=== PATIENT | female | born 1990 | race Caucasian/White ===

== ENCOUNTER 2023-02-16 11:04 | Day surgery (SDC) | payer OTHER, SELFPAY ==
[2023-02-06 14:18] VITALS: BMI 22.8
--- NOTE | 2023-02-15 15:43 | WPDANESEPPF ---
Anes - Initial Pre Proc Eval Procedure: Operation Date: 02/16/23 14:00 Proposed Procedures p Bilateral Breast Augmentation Mammoplasty - Naresh Campuzano MD Date/Time: 02/15/23 15:43 Surgeon: Naresh Campuzano MD Pre Op Diagnosis: Micromastia Patient Data Age: 32 Gender: F Height: 1.73 m Weight: 68 kg Allergies Allergy/AdvReac Type Severity Reaction Status Date / Time No Known Allergies Allergy Verified 02/16/23 11:38 Home Medications Medication Instructions Recorded Confirmed Type lisdexamfetamine 40 mg capsule 40 mg PO DAILY 02/06/23 02/16/23 History (Vyvanse) semaglutide 2 mg/dose (8 mg/3 mL) 1 mg subcut DAILY 02/06/23 02/16/23 History subcutaneous pen injector (Ozempic) Patient hx anesthesia problems: none Family hx anesthesia problems: none Results Review: All pre-operative results and documents have been reviewed as part of the pre-operative evaluation. [facility] Social History Social History Smoking status: Never smoker Second hand tobacco smoke exposure: No Alcohol intake: current Alcohol use details: OCCASSIONAL Substance use: never Substance use type: does not use Living arrangements: with family Spiritual care concerns: No Anes - Eval Final PreProcedure Day of Procedure 02/15/23 15:43 Patient weight: normal Heart: regular rate and rhythm Lungs: clear to auscultation and normal air movement Airway: Mallampati scale class II Neurological: alert and oriented Last oral intake: >/= 8 hours ASA classification: I Emergent: no Anesthetic plan: proceed Anesthesia type and monitoring: general LMA Results Review: All pre-operative results and documents have been reviewed as part of the pre-operative evaluation. Informed Consent: The patient's anesthetic plan and its attendant risks and benefits were discussed with the patient/family/POA. Questions were solicited and answers provided to the satisfaction of the patient/family/POA.
[2023-02-16] VITALS (8 sets, daily range): BP systolic 112–127; BP diastolic 68–79; PULSE 74–116; RESP 14–20; TEMP 36.3–37.1; O2SAT 99–100
[2023-02-16] MEDS: SCOPOLAMINE 1.5 MG PATCH TRANSDERM (11:50)
[2023-02-16] MEDS: LACTATED RINGERS 1,000 ML 30 ML IV CONT (11:51)
--- NOTE | 2023-02-16 12:01 | P.OP_ITS ---
Procedure Note - Detailed Date of Procedure 02/16/23 Pre-op Diagnosis Micromastia Post-op Diagnosis Same Procedure Performed Bilateral augmentation mammaplasty Surgeon Naresh Campuzano MD Anesthesia General Findings Bilateral Hilda Sanders SoftTouch 440cc Right - Dual plane 2.5 REF# SSLP-440 SN [id number] Left - Dual plane 3 REF# SSLP-440 SN [id number] Description of Procedure She is here today for bilateral breast augmentation. Previously and again today the risks, benefits, alternatives were discussed in extensive detail. I wanted her to be very realistic about the risks involved as well as expectations. We discussed aftercare and what to monitor for. Made sure answered all of her questions to her satisfaction today and consent was obtained. Marked in the preoperative holding area with their verification. The patient was taken to the operating room placed supine on the operating table. Anesthesia was provided by anesthesiology. A surgical time-out was taken. We cleansed the skin and 1% lidocaine and 0.25% Marcaine with epinephrine was used anesthetize as a field block. She was prepped and draped in a standard sterile fashion. Tegaderm nipple Simms were placed. A 15 blade used to make an incision along the inframammary fold. Dissection was continued at 45 degree angle until the chest wall as identified. I incised the pectoralis major along its inferior border and completely released the inferior border leaving the medial border intact. I created a subpectoral pocket in the appropriate dimensions based on our preoperative planning for the implant. I then copiously irrigated with saline solution and verified a strict hem ostasis. Next the use a triple antibiotic and Betadine containing solution to irrigate the pocket. I washed my gloves with the triple antibiotic and Betadine solution. We washed the implant immediately upon opening it with this solution and only opened it when we needed it. I used implant funnel and no-touch technique. The implant was introduced into the pocket using the funnel. Having verified positioning of the implant this was closed using 2-0 Vicryl followed by 3-0 Monocryl in a running subcuticular 4-0 Monocryl followed by tissue glue. Fluffs and surgical bra were placed. Patient was awoke and taken to PACU without difficulty. All instrument sponge counts were correct at the end of the case. Estimated Blood Loss 25 Drains No Packing No Pathology None sent Complications No immediate complications Condition Stable Disposition PACU
--- NOTE | 2023-02-16 12:01 | WPDHPUPDATE1 ---
History and Physical Update Update Date/Time: 02/16/23 12:01 History and Physical has been reviewed, including an updated exam of the patient. There are NO changes in the patient's condition. Risks, benefits, and alternatives have been discussed and questions answered. Patient agrees to proceed with procedure.
[2023-02-16] MEDS: ceFAZolin SODIUM 2 GM/20 ML SW SYRINGE IV PUSH (12:22)
[2023-02-16] MEDS: TRANEXAMIC ACID 1,000 MG/10 ML AMPUL 1000 MG IV PUSH (12:22)
[2023-02-16] MEDS: NACL 0.9% IRRIG POUR BOTTLE 900 ML, GENTAMICIN SULFATE INJ 160 MG, ceFAZolin 2 GM, POVI... IRRIGATION (12:38)
[2023-02-16] MEDS: LACTATED RINGERS 1,000 ML 150 ML IV CONT (13:20)
--- NOTE | 2023-02-16 13:25 | W.PM.PROC2 ---
Procedure Note - Detailed Date of Procedure 02/16/23 Pre-op Diagnosis Micromastia Post-op Diagnosis Same Procedure Performed 1. Bilateral augmentation mammaplasty. 2. Repair left inverted nipple Surgeon Naresh Campuzano MD Anesthesia General Findings Bilateral Hilda Henning SoftTouch 320cc Description of Procedure She is here today for bilateral breast augmentation. Previously and again today the risks, benefits, alternatives were discussed in extensive detail. I wanted her to be very realistic about the risks involved as well as expectations. We discussed aftercare and what to monitor for. Made sure answered all of her questions to her satisfaction today and consent was obtained. Marked in the preoperative holding area with their verification. The patient was taken to the operating room placed supine on the operating table. Anesthesia was provided by anesthesiology. A surgical time-out was taken. We cleansed the skin and 1% lidocaine and 0.25% Marcaine with epinephrine was used anesthetize as a field block. She was prepped and draped in a standard sterile fashion. Tegaderm nipple Simms were placed. A 15 blade used to make an incision along the inframammary fold. Dissection was continued at 45 degree angle until the chest wall as identified. I incised the pectoralis major along its inferior border and completely released the inferior border leaving the medial border intact. I created a subpectoral pocket in the appropriate dimensions based on our preoperative planning for the implant. I then copiously irrigated with saline solution and verified a strict hemostasis. Next the use a triple antibiotic and Betadine containing solution to irrigate the pocket. I washed my gloves with the triple antibiotic and Betadine solution. We washed the implant immediately upon opening it with this solution and only opened it when we needed it. I used implant funnel and no-touch technique. The implant was introduced into the pocket using the funnel. Having verified positioning of the implant this was closed using 2-0 Vicryl followed by 3-0 Monocryl in a running subcuticular 4-0 Monocryl followed by tissue glue. Tegaderm removed. I was able to easily valentino the left nipple. A 15 blade was used to make an incision at the inferior aspect of nipple and I used a spreading technique to provide eversion without traction. No ducts were cut. I placed two horizontal mattress 3-0 Vicryl and closed nipple with 5-0 chromic. Left nipple maintained projection and matched the contralateral nipple. Fluffs and surgical bra were placed. Patient was awoke and taken to PACU without difficulty. All instrument sponge counts were correct at the end of the case. Estimated Blood Loss 25 Drains No Packing No Pathology None sent Complications No immediate complications Condition Stable Disposition PACU
[2023-02-16] MEDS: fentaNYL CITRATE INJ (*CRX) 100 MCG/2 ML VIAL 25 MCG IV PUSH ×4 (13:28→13:56)
[2023-02-16] MEDS: ONDANSETRON INJ 4 MG/2 ML VIAL IV PUSH (13:29)
--- NOTE | 2023-02-16 13:40 | SUR.PHASEI ---
1320; PT INTO PACU PER STRETCHER, PT TEARFUL. C/O PAIN AT 10/10; PT COMFORTED. FENTANYL WILL BE GIVEN PRN. PT C/O NAUSEA. ZOFRAN WILL BE GIVEN IV
--- NOTE | 2023-02-16 13:47 | SUR.PHASEI ---
PT RESTING QUIETLY. PT CALM NOW. STATES PRESSURE DISCOMFORT GETTING BETTER NOW. 06/14.
--- NOTE | 2023-02-16 13:52 | SUR.PHASEI ---
PT STATES RELIEF OF NAUSEA AT THIS TIME
--- NOTE | 2023-02-16 14:04 | SUR.PHASEI ---
PT AWAKE, STATES SHE IS READY TO SEE FAMILY AND GO TO [place].
--- NOTE | 2023-02-16 14:47 | SUR.PHASEII ---
1430- pt pain level at a stated 7- asked for 5mg oxycodone then declined d/t nausea-- vitals remain stable
--- NOTE | 2023-02-16 14:48 | WPDANESPN ---
Anes - Prog Note Post-Op Date/Time: 02/16/23 14:48 Cardiovascular status: normal Respiratory status: normal Airway patency: baseline Mental status: baseline Post-Op hydration status: normal Vital Signs: Last Vital Signs Temp 36.5 C 02/16/23 14:00 Pulse 76 02/16/23 14:30 Resp 15 02/16/23 14:30 BP 120/79 02/16/23 14:30 Pulse Ox 100 02/16/23 14:30 O2 Del Method Room Air 02/16/23 14:30 O2 Flow Rate 3 02/16/23 13:35 Pain Score (VAS): 0 I/O: Intake & Output 02/15/23 02/16/23 02/16/23 23:59 07:59 15:59 Intake Total 0 Balance 0 Post-procedural complaints: none Patient Feedback: Patient satisfied with anesthetic care.
== END 2023-02-16 15:40 | disposition home or self-care (01) ==
PROVIDERS: Visit Provider Surgery Plastic and Reconstructive Surgery
PROC: (CPT 19325; principal; 2023-02-16 14:00)
DX: Z41.1 Encounter for cosmetic surgery (principal)
CPT/HCPCS: 19325

== ENCOUNTER 2024-05-06 00:55 | Day surgery (SDC) | payer OTHER, SELFPAY ==
[2024-04-25 12:43] VITALS: BMI 20.7
--- NOTE | 2024-04-25 12:51 | SUR.PREOP ---
Report to the Outpatient Waiting Room, entrance under the green pavilion located off [facility], at time 1130 on date 05/06/2024 . Planned Procedure Time: 1:30p.m.. Time changes happen often and if your time is changed the preop area will call you the afternoon before. - You and your visitor will be asked to self-screen and do not enter if you have any COVID symptoms. - A mask is optional within the hospital at this time. Patients may have clear liquids (water, carbonated beverages, clear teas, apple juice) until 3 hours prior to surgery with a maximum of 20 ounces. - No food from midnight until time of surgery. Take the following medications with a SIP of water the morning of surgery: Wellbutrin, Prozac DO NOT STOP ANY OF YOUR OTHER PRESCRIPTION MEDICATIONS PRIOR TO SURGERY ?EXCEPT THE FOLLOWING Medications to discontinue per physician N/A Date to take last dose N/A Please no make-up, nail bengali, hairspray, perfume, deodorant, or body powder the day of surgery. No jewelry (including any body piercings) or valuables the day of surgery, leave them at home. Please take a shower or bath the night before, or the morning of, surgery with an antibacterial soap. Wear comfortable, loose fitting clothing. Children are encouraged to wear pajamas. - Jewelry must be removed prior to entering the operating room. Rings and piercings that are not removed may be cut off. - The hospital will not accept responsibility for valuables. - Please leave all valuables, including medications, at home the day of surgery. If you are going home after surgery, a licensed motorcoach driver must drive you home. - NO public transportation without another adult if you receive anesthesia. - We recommend that an adult stay with you for 24 hours following discharge. - We also recommend that you do not drive, make important decision, drink alcoholic beverages, or take any drugs that were not prescribed by your health care provider for at least 24 hours after your discharge time. For Pediatric surgeries, we recommend two adults accompany the child home. Follow any additional instructions given to you from your surgeon. If you or anyone in your household have experienced Covid symptoms in the past week, please notify your surgeon or the nurse liaison at the phone number below for possible testing. Telephone instructions given to Shanna Crisostomo and asked if any additional questions and then verbalized understanding. Patient advised to call surgeon office or pre surgery nurse liaison [phone] if any additional questions.
[2024-05-06] VITALS (10 sets, daily range): BP systolic 104–134; BP diastolic 70–90; PULSE 77–96; RESP 14–23; TEMP 36.1–37.2; O2SAT 99–100; BMI 20.2
--- NOTE | 2024-05-06 07:09 | WPDHPUPDATE1 ---
History and Physical Update Update Date/Time: 05/06/24 07:09 History and Physical has been reviewed, including an updated exam of the patient. There are NO changes in the patient's condition. Risks, benefits, and alternatives have been discussed and questions answered. Patient agrees to proceed with procedure.
--- NOTE | 2024-05-06 07:09 | W.PM.PROC2 ---
Procedure Note - Detailed Date of Procedure 05/06/24 Pre-op Diagnosis right breast implant rupture Post-op Diagnosis Other (History bilateral breast augmentation, right breast grade 4 capsular contracture.) Procedure Performed Bilateral breast implant exchange with capsulectomy Surgeon Naresh Campuzano MD Anesthesia General Indications History breast augmentation with right breast capsular contracture which has progressed now to grade 4. In office ultrasound indicated right breast implant rupture which was reviewed by myself and outside surgeon for confirmation. Patient states she wants to proceed with exchange for larger implants and treatment right capsular contracture. She understands there is always risk this will recur. Size discussed in extensive detail. Findings Previous implants: Bilateral SSLP-440 - Intact New Implants Bilateral Natrelle Inspira SoftTouch 750cc Right - REF# SSX-750 SN [id number] Left - REF# SSX-750 SN [id number] Description of Procedure Preoperatively the risks, benefits, alternatives were discussed in extensive detail. I wanted to be very realistic about the risks involved as well as expectations. I was clear about how we could actually make her worse. Answered all questions to satisfaction. Voiced a clear understanding. Consent obtained. She was taken the operating room placed supine on the operating room table. Anesthesia provided by anesthesiology and prepped and draped in a standard sterile fashion. Surgical time-out was taken. 1% lidocaine and 0.25% Marcaine with epinephrine was used to provide a field block. Tegaderm nipple corral were placed. Fifteen blade used to excise the previous IMF scars. Dissection was continued down until the capsules were identified and excised a significant portion of the capsule which was sent to pathology. I irrigated and soaked with Phase One bilateral. I then copiously irrigated with 3 L of saline solution on TUR tubing. Verified strict hemostasis. Again irrigated and soaked with Phase One bilatera. I then irrigated with Betadine containing solution. Using a no-touch technique and a Brown funnel the implant was introduced into the pocket. This was closed with 2-0 PDS followed by 3-0 Monocryl and a running subcuticular 4-0 Monocryl followed by tissue glue. Dressings were placed. She was woken taken to the PACU without difficulty. All instrument sponge counts were correct at the end of the case. Estimated Blood Loss 40 Drains No Packing No Pathology Yes (Bilateral breast implant capsules) Complications No immediate complications Condition Stable Disposition PACU
--- NOTE | 2024-05-06 07:35 | P.PNAN_ITS ---
Anes - Initial Pre Proc Eval Procedure: Operation Date: 05/06/24 08:30 Proposed Procedures p Bilateral Breast Implant Exchange - Naresh Campuzano MD Date/Time: 05/06/24 07:35 Surgeon: Naresh Campuzano MD Pre Op Diagnosis: right breast implant rupture Patient Data Age: 33 Gender: F Height: 1.75 m Weight: 62.2 kg Last Vital Signs Temp 99 F 05/06/24 07:16 Pulse 78 05/06/24 07:16 Resp 14 05/06/24 07:16 BP 126/90 05/06/24 07:16 Pulse Ox 100 05/06/24 07:16 Allergies Allergy/AdvReac Type Severity Reaction Status Date / Time No Known Allergies Allergy Verified 04/25/24 12:40 Home Medications Medication Instructions Recorded Confirmed Type lisdexamfetamine 40 mg capsule 50 mg PO DAILY 02/06/23 04/25/24 History (Vyvanse) bupropion HCl 150 mg 24 hr tablet, 150 mg PO DAILY 04/25/24 04/25/24 History extended release fluoxetine 20 mg capsule 20 mg PO DAILY 04/25/24 04/25/24 History montelukast 10 mg tablet 10 mg PO DAILY 04/25/24 04/25/24 History Patient hx anesthesia problems: post op nausea/vomiting Family hx anesthesia problems: none Results Review: All pre-operative results and documents have been reviewed as part of the pre- operative evaluation. [facility] Social History Social History Smoking status: Never smoker Second hand tobacco smoke exposure: No Alcohol intake: current Drinks per week: 2 Alcohol use details: OCCASSIONAL Substance use: never Substance use type: does not use Living arrangements: with family Spiritual care concerns: No Anes - Eval Final PreProcedure Day of Procedure 05/06/24 07:35 Patient weight: normal Heart: regular rate and rhythm Lungs: clear to auscultation Airway: Mallampati scale class II Neurological: alert and oriented Last oral intake: >/= 8 hours ASA classification: II Emergent: no Anesthetic plan: proceed Anesthesia type and monitoring: general LMA and standard monitoring Results Review: All pre-operative results and documents have been reviewed as part of the pre-operative evaluation. Informed Consent: The patient's anesthetic plan and its attendant risks and benefits were discussed with the patient/family/POA. Questions were solicited and answers provided to the satisfaction of the patient/family/POA.
[2024-05-06] MEDS: SCOPOLAMINE 1 MG PATCH 1 PATCH TRANSDERM (07:43)
[2024-05-06] MEDS: LACTATED RINGERS 1,000 ML 30 ML IV CONT ×2 (08:00→10:23)
[2024-05-06] MEDS: TRANEXAMIC ACID 1,000MG/ISO100 1,000 MG/100 ML BAG 200 MG IVPB (08:39)
[2024-05-06] MEDS: LIDO 1%/EPINEPHRINE 1:100,000 50 ML VIAL 40 ML INFILTRATE (08:48)
[2024-05-06] MEDS: NACL 0.9% IRRIG POUR BOTTLE 900 ML, GENTAMICIN SULFATE INJ 160 MG, ceFAZolin 2 GM, POVI... IRRIGATION (08:48)
[2024-05-06] MEDS: ceFAZolin 2 GM/D5W 50 ML 2 GM/50 ML BAG IVPB (08:48)
--- NOTE | 2024-05-06 09:40 | SUR.OPER ---
bilateral breast implants sent to sterile processing per [facility]/ labeled right and left with patient ID Label and noted on containers to return to OR Office. Shanna in [place] notified Implants have been sent to them.
--- NOTE | 2024-05-06 09:45 | SUR.OPER ---
[facility] [id number] exp 2028-08-24 left [id number] exp 2028-09-12
[2024-05-06] MEDS: ONDANSETRON INJ 4 MG/2 ML VIAL IV PUSH (10:41)
[2024-05-06] MEDS: diphenhydrAMINE HCl INJ 50 MG/ML VIAL 25 MG IV PUSH (10:46)
[2024-05-06] MEDS: oxyCODONE HCL (*CRX) 5 MG TAB IR PO (12:06)
== END 2024-05-06 12:43 | disposition home or self-care (01) ==
PROVIDERS: Visit Provider Surgery Plastic and Reconstructive Surgery
PROC: (CPT 19342; principal; 2024-05-06 08:30)
DX: T85.44XA Capsular contracture of breast implant, initial encounter (principal); Y83.8 Other surgical procedures as the cause of abnormal reaction of the patient, or of later complication, without mention of misadventure at the time of the procedure
CPT/HCPCS: 19371; 19325; 88304; A9270; J0690; J1200; J1580; J2250; J2405; J3010; J7120